=== PATIENT | male | born 1990 | race Caucasian/White ===

== ENCOUNTER 2018-01-07 03:47 | Emergency (ER) | payer OTHER, BC ==
[~2018-01-07] VITALS: Ht 177.8 cm; Wt 72.6 kg
--- NOTE | 2018-01-07 04:12 | ED General ---
General Chief Complaint: Exposure Stated Complaint: FINGER STICK, LEFT HAND Source of Information: Patient Exam Limitations: No Limitations History of Present Illness Date Seen by Provider: Jan 07, 2018 Time Seen by Provider: 03:56 Initial Comments Here with report of needle stick exposure to the left index finger palmar surface. This was from an IO needle used for access during a [employer] that he responded to. Occurred approximately one hour ago. He did wash his hand thoroughly afterwards. Source patient reportedly has history of hepatitis C. Denies other injury or concerns. Timing/Duration: 1 Hour Severity: Mild Associated Systoms: No Fever/Chills, No Nausea/Vomiting Allergies and Home Medications Allergies Coded Allergies: No Known Drug Allergies (Unverified , 01/07/18) Home Medications No Active Prescriptions or Reported Meds Patient Home Medication List Home Medication List Reviewed: Yes Review of Systems Review of Systems Constitutional: No chills, No fever Respiratory: no symptoms reported Cardiovascular: no symptoms reported Skin: see HPI Past Falijkq-Xybukz-Usglyt Hx Past Med/Social Hx: Reviewed Nursing Past Med/Soc Hx Patient Social History Alcohol Use: Occasionally Uses Recreational Drug Use: No Smoking Status: Never a Smoker Recent Foreign Travel: No Contact w/Someone Who Travel: No Past Medical History Surgeries: No Respiratory: No Cardiac: No Neurological: No Genitourinary: No Gastrointestinal: No Musculoskeletal: No Endocrine: No Psychosocial: No Family Medical History Reviewed Nursing Family Hx Physical Exam Vital Signs Capillary Refill : Height, Weight, BMI Height: '" Weight: lbs. oz. kg; BMI Method: General Appearance: No Apparent Distress, WD/WN Respiratory: Lungs Clear, Normal Breath Sounds Cardiovascular: Regular Rate, Rhythm, No Murmur Skin: Warm/Dry, Other (small puncture type wound to the middle phalanx area of the left index finger palmar surface) Progress/Results/Core Measures Suspected Sepsis SIRS Temperature: Pulse: Respiratory Rate: Blood Pressure / Mean: Results/Orders Vital Signs/I&O Capillary Refill : Progress Note : Progress Note I did talk with the patient about HIV and hepatitis C. Source patient reportedly HIV negative recently but hepatitis C positive. Initial labs drawn on both. Patient to follow-up with occupational health. No indication for antiviral medication at this time. Departure Impression Primary Impression: Needlestick injury of finger Qualified Codes: S61.239A - Puncture wound without foreign body of unspecified finger without damage to nail, initial encounter; W27.3XXA - Contact with needle (sewing), initial encounter Disposition: 01 HOME, SELF-CARE Condition: Improved Departure-Patient Inst. Decision time for Depature: 04:10 Referrals: LES ODONNELL MD (PCP/Family) Primary Care Physician Patient Instructions: Blood or Body Fluid Exposure Add. Discharge Instructions: All discharge instructions reviewed with patient and/or family. Voiced understanding. Follow-up with occupational health in the morning. You'll be notified of the results. It is okay to return to work now. Return for other concerns as needed. Scripts No Active Prescriptions or Reported Meds ADIN RUIZ MD Jan 07, 2018 04:12
[2018-01-07 04:21] VITALS: BP 141/93
== END 2018-01-07 04:21 | disposition home or self-care (01) ==
LOC: ER 03:54
DX: S61.231A Puncture wound without foreign body of left index finger without damage to nail, initial encounter (principal); B19.20 Unspecified viral hepatitis C without hepatic coma; W27.3XXA Contact with needle (sewing), initial encounter
CPT/HCPCS: 99282